=== PATIENT | female | born 1950 | race Caucasian/White ===

== ENCOUNTER 2023-10-27 22:00 | Emergency (ER) | payer MEDICAID, MEDICARE ==
[~2023-10-27] VITALS: Ht 154.9 cm; Wt 81.8 kg
[~2023-10-27 22:00] MED LIST: ACAR25TA2 PO; AMLO2.5T4 PO; ASPI-1009 PO; ATOR10TA87 PO; BUSP10TA11 PO; CITA20TA28 PO; FURO-150 PO; HYDR12.522 PO; METF-504 PO; PER5325T PO; PIOG15TA8 PO; POTA-207 PO; UBIQ100C2 PO
[2023-10-27 22:06] VITALS: BP 179/54; PULSE 82; RESP 18; TEMP 98.2; O2SAT 98
[2023-10-27 23:12] LABS: BASOPHILS % (AUTO) 0.9 % (0-1); EOSINOPHILS # (AUTO) 0.1 X10'3 (0-0.9); LYMPHOCYTES # (AUTO) 0.7 X10'3 (1.1-4.8); LYMPHOCYTES % (AUTO) 15.1 % (21-51); MEAN PLATELET VOLUME 8.7 FL (7.4-10.4); MONOCYTES # (AUTO) 0.3 X10'3 (0-0.9); NEUTROPHILS # (AUTO) 3.7 X10'3 (1.8-7.7); PLATELET COUNT 211 X10'3 (140-440); WHITE BLOOD COUNT 4.9 X10'3 (4.5-11.0)
[2023-10-27 23:22] LABS: ALBUMIN 3.3 G/DL (3.4-5.0); ANION GAP 8 (8-16); BLOOD UREA NITROGEN 17 MG/DL (7-18); BUN/CREATININE RATIO 16.3 (10.0-20.0); CALCIUM 8.9 MG/DL (8.5-10.1); CHLORIDE 106 MMOL/L (99-107); CREATININE 1.04 MG/DL (0.40-0.90); GLUCOSE 194 MG/DL (70-104); POTASSIUM 4.1 MMOL/L (3.5-5.1); PRO BRAIN NATRIURETIC PEPTIDE 576 PG/ML (0-125); SODIUM 140 MMOL/L (135-145); TOTAL CARBON DIOXIDE 25.8 MMOL/L (24-32); eCRCL 36 ML/MIN; eGFR 52 ML/MIN
[2023-10-28 00:28] LABS: HEMATOCRIT 22.5 % (35.0-45.0); MEAN CORPUSCULAR HEMOGLOBIN 26.5 PG (27.0-31.0); MEAN CORPUSCULAR HGB CONC 33.5 g/dL (33.0-36.5); MEAN CORPUSCULAR VOLUME 79.1 FL (78-98); RED BLOOD COUNT 2.84 X10'6 (4.20-5.60)
[2023-10-28 00:36] LABS: ANISOCYTOSIS 2+; PLATELET ESTIMATE NORMAL
[2023-10-28 00:38] LABS: ELLIPTOCYTES FEW; HYPOCHROMASIA 1+; MICROCYTOSIS FEW; STOMATOCYTES FEW
[2023-10-28 09:00] LABS: HEMOGLOBIN 7.5 g/dl (12.0-16.0)
== END 2023-10-28 00:11 | disposition left against medical advice (07) ==
LOC: ER 22:01
DX: R60.0 Localized edema (principal); R06.02 Shortness of breath; Z95.0 Presence of cardiac pacemaker; Z53.21 Procedure and treatment not carried out due to patient leaving prior to being seen by health care provider
CPT/HCPCS: 36415; 71045; 80048; 83880; 84484; 85008; 85025; 93005